=== PATIENT | female | born 1965 | race Two or more races ===

== ENCOUNTER 2023-10-24 10:57 | Emergency (ER) | payer MEDICAID ==
[~2023-10-24] VITALS: Ht 149.9 cm; Wt 65.1 kg
[2023-10-24] MEDS ORDERED: MELO-335 PO (13:16)
[2023-10-24] MEDS ORDERED: CEPH500C PO (13:16)
[2023-10-24] MEDS: KETOROLAC TROMETH 60MG/2ML VIAL IM ONE (13:29)
[2023-10-24 13:40] VITALS: BP 135/69; PULSE 79; RESP 18; TEMP 97.6; O2SAT 98
== END 2023-10-24 13:16 | disposition home or self-care (01) ==
LOC: ER 10:57
DX: L02.212 Cutaneous abscess of back [any part, except buttock and flank] (principal); Z79.899 Other long term (current) drug therapy; Z88.8 Allergy status to other drugs, medicaments and biological substances
CPT/HCPCS: 96372; 99283; J1885

== ENCOUNTER 2023-10-30 16:10 | Emergency (ER) | payer MEDICAID ==
[~2023-10-30] VITALS: Ht 149.9 cm; Wt 62.7 kg
[~2023-10-30 16:10] MED LIST: CEPH500C PO; MELO-335 PO
[2023-10-30 16:38] VITALS: BP 157/77; PULSE 86; RESP 16; O2SAT 98
[2023-10-30] MEDS ORDERED: BACDST PO (18:39)
[2023-10-30] MEDS: SULFAMETHOX W/TRIMETH(800/160MG) DS TAB PO ONE (18:40)
[2023-10-30] MEDS ORDERED: IBUP-1454 PO (18:41)
[2023-10-30] MEDS ORDERED: ACET500T58 PO (18:41)
== END 2023-10-30 18:45 | disposition home or self-care (01) ==
LOC: ER 16:10
DX: L02.212 Cutaneous abscess of back [any part, except buttock and flank] (principal); Z79.899 Other long term (current) drug therapy; Z88.8 Allergy status to other drugs, medicaments and biological substances; Z88.5 Allergy status to narcotic agent
CPT/HCPCS: 10060

== ENCOUNTER 2025-02-27 11:14 | Emergency (ER) | payer MEDICAID ==
[~2025-02-27] VITALS: Ht 142.2 cm; Wt 67.0 kg
[~2025-02-27 11:14] MED LIST changes: +ACET500T58 PO; +BACDST PO; +IBUP-1454 PO; -MELO-335 PO; +MELO15TA29 PO
[2025-02-27 11:49] LABS: Basophils # (auto) 0.1 10 ^3/uL (0-0.2); Basophils % (auto) 1.3 % (0.0-2.0); Eosinophils # (auto) 0.3 10 ^3/uL (0-0.8); Eosinophils % (auto) 4.9 % (0.0-7.0); Hematocrit 41.2 % (36.0-46.0); Hemoglobin 14.3 g/dL (12.2-16.2); Lymphocytes # (auto) 2.2 10 ^3/uL (0.4-5.4); Lymphocytes % (auto) 33.3 % (10.0-50.0); Mean Corpuscular Hemoglobin 32.3 pg (28.0-32.0); Mean Corpuscular Hgb Conc. 34.7 g/dL (32.0-36.0); Monocytes # (auto) 0.2 10 ^3/uL (0-1.3); Monocytes % (auto) 3.7 % (0.0-12.0); Neutrophils # (auto) 3.7 10 ^3/uL (1.6-8.6); Neutrophils % (auto) 56.8 % (37.0-80.0); Platelet Count (auto) 200 10^3/uL (140-450); Red Blood Cells 4.43 10^6/uL (4.0-5.20); Red Cell Distribution Width 13.1 % (11.8-14.3); White Blood Cell 6.5 10^3/uL (4.4-10.8)
[2025-02-27 11:53] LABS: Sodium 142 mmol/L (136-145)
[2025-02-27 11:54] LABS: Anion Gap 9 (5-15); Calcium 9.9 mg/dL (8.7-10.4); Carbon Dioxide 25 mmol/L (20-31); Chloride 108 mmol/L (98-107)
[2025-02-27 11:59] LABS: BUN/Creatinine Ratio 20.3 (10.0-20.0); Blood Urea Nitrogen 16 mg/dL (9-23); Glucose 198 mg/dL (74-106)
--- NOTE | 2025-02-27 12:20 | ED.PDOC ---
History of Present Illness HPI Comments 59-year-old female presents with a chief complaint of back pain x onset Wednesday (02/25/2025). Patient mentions that she was sitting down on a wooden chair and fell backwards on Wednesday. Patient states that her pain is localized to her lumbar paraspinal region, radiating to bilateral sides, rates her pain as moderate Patient reports that she has been unable to get around easily or walk properly due to the pain. Denies history of chronic steroid use or history of osteoporosis Denies any history of cancer Denies fevers chills night sweats nausea vomiting unintentional weight loss Denies IV drug use history of HIV/TB Denies abdominal "tearing" pain Denies syncope Denies urinary incontinence or urinary changes Denies numbness tingling of the groin or inner thigh Denies previous back procedure or surgery Chief Complaint: Back Pain Time Seen by MD: 12:10 Reviewed Notes: Nurses Notes, Medications, Allergies Allergies: Coded Allergies: Acetaminophen (Verified Allergy, Unknown, 10/24/23) Hydrocodone (Verified Allergy, Unknown, 10/24/23) Home Meds Active Scripts Ibuprofen (Ibuprofen) 600 Mg Tab, 1 TAB PO Q6HP PRN, #20 TAB Prov:ROSE FROST PAC 10/30/23 Acetaminophen (Acetaminophen) 500 Mg Tab, 500 MG PO Q4HP PRN, #20 TAB Prov:ROSE FROST PAC 10/30/23 Sulfamethoxazole W/Trimethopri (Bactrim Ds Tablet) 1 Tab Tb, 1 TAB PO BID for 7 Days, #14 TAB Prov:ROSE FROST PAC 10/30/23 Cephalexin Monohydrate (Cephalexin) 500 Mg Cap, 1 CAP PO QID for 7 Days, #28 CAP 0 Refills Prov:LIEN TALAMANTES NP 10/24/23 Meloxicam (Meloxicam) 15 Mg Tab, 1 TAB PO DAILY for 30 Days, #30 TAB 0 Refills Prov:LIEN TALAMANTES NP 10/24/23 Information Source: Patient Mode of Arrival: Ambulatory Severity: Moderate Timing: Days Duration: Since onset Prehospital treatment: None Past Medical History PAST MEDICAL HISTORY: Denies Surgical History: Denies all surgeries DIRECTOR ALUMNI RELATIONS History: No Pertinent DIRECTOR ALUMNI RELATIONS History Family History Family History: Reviewed,noncontributory to illness Social History Smoker: Non-Smoker Alcohol: Denies ETOH Use Drugs: Denies Drug Use Lives In: Home All Other Systems: Reviewed and Negative ( PER HPI) Physical Exam General Appearance: No Apparent Distress, Normal HEENT: Normal ENT Inspection, Pharynx Normal, TMs Normal Neck: Full Range of Motion, Non-Tender, Normal, Normal Inspection Respiratory: Chest Non-Tender, Lungs Clear, No Accessory Muscle Use, No Respiratory Distress, Normal Breath Sounds Cardiovascular: No Edema, No JVD, No Murmur, No Gallop, Normal Peripheral Pulses, Regular Rate/Rhythm Breast Exam: Deferred Gastrointestinal: No Organomegaly, Non Tender, No Pulsatile Mass, Normal Bowel Sounds, Soft Genitalia: Deferred Pelvic: Deferred Rectal: Deferred Extremities: No calf tenderness, Normal capillary refill, Normal inspection, Normal range of motion, Non-tender, No pedal edema Musculoskeletal : Location: Bilateral Extremity Location: Back Apperance: Tenderness: Severe (PARASPINAL LUMBAR REGION TTP) Neurologic: Alert, family services specialist II-XII nml as Tested, No Motor Deficits, Normal Affect, Normal Mood, No Sensory Deficits Cerebellar Function: Normal Reflexes: Normal Skin: Dry, Normal Color, Warm Lymphatic: No Adenopathy Was a procedure done? Was a procedure done?: No Differential Dx Considerations may include: Fracture, strain, sciatica of the X-Ray, Labs, Meds, VS Vital Signs Date Time Temp Pulse Resp B/P (MAP) Pulse Ox O2 Delivery O2 Flow Rate FiO2 02/27/25 11:40 97.8 78 18 136/75 (95) 95 97.8 Lab Test 02/27/25 12:10 02/27/25 11:30 Range/Units Urine Color Yellow Yellow Urine Clarity Clear Clear Urine pH 5.5 5.0-9.0 Urine Specific [place] 1.029 1.001-1.035 Urine Protein Trace H Negative Urine Ketones Negative Negative Urine Blood 1+ H Negative /uL Urine Nitrite Negative Negative Urine Bilirubin Negative Negative Urine Urobilinogen Normal Negative mg/dL Urine Leukocyte Esterase 2+ Negative /uL Urine RBC 3 0 - 4 /hpf Urine Microscopic WBC 5 0-5 /HPF Urine Squamous Epithelial Cells Few <5 /hpf Urine Bacteria Few H None Seen /hpf Urine Hyaline Casts Few 0 - 2 /lpf Urine Glucose Normal Normal mg/dL White Blood Count 6.5 4.4-10.8 10^3/uL Red Blood Count 4.43 4.0-5.20 10^6/uL Hemoglobin 14.3 12.2-16.2 g/dL Hematocrit 41.2 36.0-46.0 % Mean Corpuscular Volume 93.0 80.0-100.0 fL Mean Corpuscular Hemoglobin 32.3 H 28.0-32.0 pg Mean Corpuscular Hemoglobin Concent 34.7 32.0-36.0 g/dL Red Cell Distribution Width 13.1 11.8-14.3 % Platelet Count 200 140-450 10^3/uL Mean Platelet Volume 8.7 6.9-10.8 fL Neutrophils (%) (Auto) 56.8 37.0-80.0 % Lymphocytes (%) (Auto) 33.3 10.0-50.0 % Monocytes (%) (Auto) 3.7 0.0-12.0 % Eosinophils (%) (Auto) 4.9 0.0-7.0 % Basophils (%) (Auto) 1.3 0.0-2.0 % Neutrophils # (Auto) 3.7 1.6-8.6 10 ^3/uL Lymphocytes # (Auto) 2.2 0.4-5.4 10 ^3/uL Monocytes # (Auto) 0.2 0-1.3 10 ^3/uL Eosinophils # (Auto) 0.3 0-0.8 10 ^3/uL Basophils # (Auto) 0.1 0-0.2 10 ^3/uL Nucleated Red Blood Cells 0.0 % Sodium Level 142 136-145 mmol/L Potassium Level 4.0 3.5-5.1 mmol/L Chloride Level 108 H 98-107 mmol/L Carbon Dioxide Level 25 20-31 mmol/L Anion Gap 9 5-15 Blood Urea Nitrogen 16 9-23 mg/dL Creatinine 0.79 0.550-1.02 mg/dL Glomerular Filtration Rate Calc 85 >90 mL/min BUN/Creatinine Ratio 20.3 H 10.0-20.0 Serum Glucose 198 H 74-106 mg/dL Calcium Level 9.9 8.7-10.4 mg/dL X-Ray, Labs, Meds, VS Comment 59-year-old female presents with a chief complaint of back pain x onset Wednesday (02/25/2025). Patient arrives alert and oriented, ABC's intact, afebrile, vital signs stable, saturating well in room air Diagnostic imaging ordered by me and results interpreted by radiology : LUMBAR X-RAY No acute fracture. Patient was given: Solumedrol. Tolerated medications with no adverse reaction. I considered cauda equina, spinal cord compression, vertebral malignancy/mets, acute spinal fracture, vertebral osteomyelitis, epidural abscess, infected or obstructed kidney stone, however this is less likely as the patient does not present with lower back pain red flags. Presentation most consistent with nonemergent musculoskeletal etiology versus nonemergent disc herniation. Disposition: Discharge. Strict return precautions discussed with the patient with full understanding. Supportive care advised (rest, ice, heat, NSAIDs, stretching exercises) Massage muscles with cold pack or ice for 20 minutes 4 times per day. Usually most useful if there is swelling during the first 48 hours Heating pad on the most painful area for 20 minutes to relieve muscle spasm Sleep and the most comfortable sleeping position (usually on the side with knees bent) Light stretching, no strenuous activity, avoid frequent bending, avoid carrying heavy objects Discussed possible benefits of yoga and acupuncture Return precautions discussed including Inability to walk/bear weight Paresthesia/weakness/leg pain Fecal/urinary incontinence Any worsening symptoms Additional MDM Review of External, Non-ED records: External records reviewed. Discussion with independent historian (EMS, family) history obtained from the patient/parents (if applicable) at bedside Chronic conditions affecting care: None Social determinants of health affecting care: None Consideration of admission (observation or admission): I considered escalation of care to admission for this patient, however given the reassuring workup, the patient is safe for outpatient management. Time of 1ST Reevaluation: 12:40 Reevaluation 1ST: Unchanged Time of 2ND Reevaluation: 13:27 Reevaluation 2ND: Improved Patient Education/Counseling: Diagnosis, Treatment, Prognosis Family Education/Counseling: Diagnosis, Treatment, Prognosis SEPSIS Sepsis Screen Physician Orders Lumbar Spine 3 View (02/27/25 12:13) Methylprednisolone Sod Succ (Solu Medrol (02/27/25 13:15) Vital Signs Date Time Temp Pulse Resp B/P (MAP) Pulse Ox O2 Delivery O2 Flow Rate FiO2 02/27/25 11:40 97.8 78 18 136/75 (95) 95 97.8 Laboratory Tests Test 02/27/25 11:30 White Blood Count 6.5 10^3/uL (4.4-10.8) Departure 1 Departure Time of Disposition: 13:27 Impression: Primary Impression: Back pain Qualified Codes: M54.50 - Low back pain, unspecified Disposition: HOME / SELF CARE / HOMELESS Condition: Fair e-Prescriptions Naproxen (Naproxen) 500 Mg Tab 500 MG PO BIDPC for 10 Days, #20 TAB 0 Refills Prov: LIEN TALAMANTES NP 02/27/25 Methocarbamol (Methocarbamol) 500 Mg Tab 500 MG PO Q8HP PRN for 10 Days, #30 TAB 0 Refills Prov: LIEN TALAMANTES NP 02/27/25 Critical Care Note Critical Care Time?: No Stability Stability form required: No Heart Score Heart Score: Heart Score Response (Comments) Value History N/A 0 EKG N/A 0 Age N/A 0 Risk Factors N/A 0 Troponin N/A 0 Total 0 I personally scribed for LIEN TALAMANTES NP ([email or web address]) on 02/27/25 at 12:20. Electronically submitted by Truong Gomez ([email or web address]). I personally scribed for LIEN TALAMANTES NP ([email or web address]) on 02/27/25 at 13:10. Electronically submitted by Truong Gomez ([email or web address]). LIEN TALAMANTES NP Feb 27, 2025 12:20
[2025-02-27] MEDS: HYDROcodone-ACET 5/325MG TAB PO ONE (12:37)
[2025-02-27 12:43] LABS: Urine Bacteria FEW /hpf (None Seen); Urine Blood 1+ /uL (Negative); Urine Clarity Clear (Clear); Urine Color Yellow (Yellow); Urine Hyaline Cast FEW /lpf (0 - 2); Urine Protein, UAD TRACE (Negative); Urine Specific Gravity 1.029 (1.001-1.035); Urine Squamous Epithelial Cell FEW /hpf (<5); Urine Urobilinogen Normal (Negative); Urine WBC 5 /HPF (0-5); Urine pH 5.5 (5.0-9.0)
--- NOTE | 2025-02-27 13:01 | DVH ---
INDICATION: Trauma COMPARISON: None TECHNIQUE: 2 views of the lumbar spine were obtained. FINDINGS: The lumbar vertebral alignment is normal. The intervertebral disc spaces are well-maintained. No significant facet arthropathy is noted. No acute fracture, vertebral compression deformity or aggressive osseous lesions. The paravertebral soft tissues are grossly unremarkable. IMPRESSION: No acute fracture.
[2025-02-27] MEDS ORDERED: NAPR-746 PO (13:29)
[2025-02-27] MEDS ORDERED: METH-1181 PO (13:29)
[2025-02-27] MEDS: methylPREDNISolone SOD SUCC 125 MG/2 ML VL IM ONE (13:31)
[2025-02-27 13:35] VITALS: BP 122/54; PULSE 61; RESP 18; TEMP 97.7; O2SAT 98
== END 2025-02-27 14:04 | disposition home or self-care (01) ==
LOC: ER 11:14
DX: M54.50 Low back pain, unspecified (principal); Z79.899 Other long term (current) drug therapy; Z88.5 Allergy status to narcotic agent; Z88.8 Allergy status to other drugs, medicaments and biological substances
CPT/HCPCS: 36415; 72100; 80048; 81001; 85025; 96372; 99284; J2919

== ENCOUNTER 2025-05-15 09:47 | Outpatient (CLI) | payer MEDICAID ==
[~2025-05-15 09:47] MED LIST changes: +METH-1181 PO; +NAPR-746 PO
[2025-05-15 10:37] LABS: Hematocrit 41.1 % (36.0-46.0); Hemoglobin 14.3 g/dL (12.2-16.2); Mean Corpuscular Hemoglobin 32.4 pg (28.0-32.0); Mean Corpuscular Volume 92.9 fL (80.0-100.0); Nucleated Red Blood Cells % 0.0 %
[2025-05-15 11:01] LABS: Alanine Aminotransferase 19 U/L (7-40); Albumin 4.5 g/dL (3.2-4.8); Alkaline Phosphatase 109 U/L (46-116); Anion Gap 10 (5-15); BUN/Creatinine Ratio 17.1 (10.0-20.0); Bilirubin, Total 0.9 mg/dL (0.2-1.0); Blood Urea Nitrogen 12 mg/dL (9-23); Calcium 9.3 mg/dL (8.7-10.4); Carbon Dioxide 25 mmol/L (20-31); Chloride 105 mmol/L (98-107); Potassium 3.6 mmol/L (3.5-5.1); Sodium 140 mmol/L (136-145); Total Protein 7.5 g/dL (5.7-8.2)
[2025-05-15 11:02] LABS: Glucose 216 mg/dL (74-106)
[2025-05-15 17:37] LABS: Cholesterol 184 mg/dL (< 200)
[2025-05-15 17:38] LABS: HDL Cholesterol 63 mg/dL (40-59); Triglycerides 170 mg/dL (< 150)
[2025-05-16 12:17] LABS: Hepatitis A Total Antibody Positive (Negative); Hepatitis B Surface Antigen Negative (Negative)
[2025-05-16 12:18] LABS: Hepatitis C Antibody Negative (Negative)
== END 2025-05-15 17:00 | disposition home or self-care (01) ==
LOC: LAB 09:47
PROVIDERS: ATTEND Licensed Practical Nurse
DX: I10 Essential (primary) hypertension (principal); E11.65 Type 2 diabetes mellitus with hyperglycemia; E55.9 Vitamin D deficiency, unspecified; Z13.29 Encounter for screening for other suspected endocrine disorder; Z00.01 Encounter for general adult medical examination with abnormal findings; Z13.220 Encounter for screening for lipoid disorders; Z13.1 Encounter for screening for diabetes mellitus; Z12.11 Encounter for screening for malignant neoplasm of colon
CPT/HCPCS: 36415; 80053; 80061; 82043; 82306; 82728; 83036; 84443; 85025; 86704; 86706; 86708; 86803; 87340

== ENCOUNTER 2025-08-15 12:31 | Outpatient (CLI) | payer MEDICAID | END 2025-08-15 17:00 | disposition home or self-care (01) | LOC: LAB 12:31 | PROVIDERS: ATTEND Licensed Practical Nurse | DX: Z12.11 Encounter for screening for malignant neoplasm of colon (principal) | CPT/HCPCS: 82274 ==